=== PATIENT | male | born 1940 | race Caucasian/White ===

== ENCOUNTER 2022-01-23 08:00 | Outpatient (CLI) | payer MEDICARE ==
--- NOTE | 2022-01-23 17:01 | XRAY Report ---
PROCEDURE: Foot 3 View LT INDICATIONS: TOE DISLOCATIONS TECHNIQUE: 3 views of the foot were acquired. COMPARISON: 2 views of the left foot dated 12/13/2021 FINDINGS: Bones: No acute fracture or dislocation. A bony erosion is present at the distal first metatarsal. Ca lcaneal pitch is 17.8 degrees. Soft tissues: No tibiotalar joint effusion. Achilles tendon appears normal. IMPRESSION: 1. Bony erosion of the distal aspect of the first metatarsal. Differential considerations include sub chondral cystic change and erosive arthritis. 2. Calcaneal pitch is 17.8 degrees. Reviewed by: Elena Aguirre MD on 01/23/2022 4:59 PM PDT Approved by: Elena Aguirre MD on 01/23/2022 4:59 PM PDT Station ID: [id number]
== END 2022-01-23 23:59 | disposition home or self-care (01) ==
LOC: DI.WOS 08:00
PROVIDERS: ATTEND Orthopaedic Surgery
DX: M85.872 Other specified disorders of bone density and structure, left ankle and foot (principal)

== ENCOUNTER 2023-06-20 10:13 | Emergency (ER) | payer MEDICARE ==
[2023-06-20] MEDS ORDERED: SODIUM CHLORIDE 0.9% 1,000 ML IV STA (10:30)
--- NOTE | 2023-06-20 10:39 | ED Physician Documentation ---
History of Present Illness - Stated complaint Stated Complaint: CHILLS,GEN WEAKNESS,LETHARGIC - Chief complaint Chief Complaint: General - History obtained from History obtained from: Patient - Additonal information Additional information: 82-year-old gentleman with history of hypertension hyperlipidemia went to [facility] in [place] and he was there for 12 days. He returned a week ago. He was feeling good on return but 2 days later developed body aches, fatigue, and diarrhea. The diarrhea is getting better. He has poor appetite. He took a home COVID test and subsequently went to the walk-in clinic few days ago and had another COVID test and both were negative. He was given 3 days of Cipro which she is on almost the last day of. His is with him and has not been ill. PD PAST MEDICAL HISTORY - Past Medical History Cardiovascular: Hypertension, High cholesterol Respiratory: None Neuro: None Endocrine/Autoimmune: None GI: None : None HEENT: None Psych: None Musculoskeletal: None Derm: None - Past Surgical History Past Surgical History: Yes - Present Medications Home Medications: Ambulatory Orders Medication Instructions Recorded Confirmed Lisinopril [Zestril] 20 mg PO DAILY 06/20/23 06/20/23 Lovastatin 40 mg PO HS 06/20/23 06/20/23 hydroCHLOROthiazide [Hydrodiuril] 25 mg PO DAILY 06/20/23 06/20/23 - Allergies Allergies/Adverse Reactions: Allergies Allergy/AdvReac Type Severity Reaction Status Date / Time No Known Drug Allergies Allergy Verified 06/20/23 10:26 - Social History Does the pt smoke?: No Smoking Status: Never smoker Does the pt drink ETOH?: Yes Does the pt have substance abuse?: No PD ED PE NORMAL - Vitals Vital signs reviewed: Yes - General General: Alert and oriented X 3, No acute distress - HEENT HEENT: PERRL, EOMI, Pharynx benign - Neck Neck: Supple, no meningeal sign - Cardiac Cardiac: RRR, No murmur - Respiratory Respiratory: No respiratory distress, Clear bilaterally - Abdomen Abdomen: Normal bowel sounds, Soft, Non tender - Back Back: No CVA TTP, No spinal TTP - Derm Derm: Normal color, Warm and dry - Extremities Extremities: No edema, No calf tenderness / cord - Neuro Neuro: Alert and oriented X 3, Normal speech Eye Opening: Spontaneous Motor: Obeys Commands Verbal: Oriented GCS Score: 15 - Psych Psych: Normal mood, Normal affect Results - Vitals Vitals: Vital Signs - 24 hr 06/20/23 06/20/23 10:18 12:05 Temperature 36.0 C L Heart Rate 75 69 Respiratory 15 18 Rate Blood Pressure 114/63 116/68 O2 Saturation 99 100 Oxygen O2 Source Room air - Labs Labs: Laboratory Tests 06/20/23 06/20/23 06/20/23 10:43 10:43 11:35 WBC 4.3 L RBC 4.31 L Hgb 14.4 Hct 41.3 L MCV 95.8 H MCH 33.4 H MCHC 34.9 RDW 12.4 Plt Count 127 L MPV 10.4 Neut # (Auto) Not Reportable Lymph # (Auto) Not Reportable [place] # (Auto) Not Reportable Eos # (Auto) Not Reportable Baso # (Auto) Not Reportable Absolute Nucleated RBC Not Reportable Total Counted 100 Band Neuts % (Manual) 0 Abnorm Lymph % (Manual) 0 Metamyelocytes % 1 H Myelocytes % 1 H Nucleated RBC % Not Reportable Neutrophils # (Manual) 3.2 Lymphocytes # (Manual) 0.4 L Monocytes # (Manual) 0.3 Eosinophils # (Manual) 0.3 Basophils # (Manual) 0.0 Differential Comment MANUAL DIFFERENTIAL Platelet Estimate DECREASED (<130,000) Platelet Morphology NORMAL APPEARANCE RBC Morph Micro Appear NORMAL APPEARANCE Sodium 130 L Potassium 3.6 Chloride 96 L Carbon Dioxide 25 Anion Gap 9.0 BUN 72 H Creatinine 3.0 H Estimated GFR (MDRD) 20 L Glucose 119 H Calcium 9.2 Total Bilirubin 0.4 AST 134 H ALT 100 H Alkaline Phosphatase 114 Total Protein 7.0 Albumin 4.2 Globulin 2.8 Albumin/Globulin Ratio 1.5 Lipase 109 H Urine Color Urine Clarity Urine pH Ur Specific [place] Urine Protein Urine Glucose (UA) Urine Ketones Urine Occult Blood Urine Nitrite Urine Bilirubin Urine Urobilinogen Ur Leukocyte Esterase Urine RBC Urine WBC Ur Squamous Epith Cells Urine Bacteria Urine Casts Ur Microscopic Review Urine Culture Comments Nasal Adenovirus (PCR) NOT DETECTED Nasal B. parapertussis DNA (PCR) NOT DETECTED Nasal Coronavir 229E PCR NOT DETECTED Nasal Coronavir HKU1 PCR NOT DETECTED Nasal Coronavir NL63 PCR NOT DETECTED Nasal Coronavir OC43 PCR NOT DETECTED Nasal Enterovir/Rhinovir PCR NOT DETECTED Nasal Influenza B PCR NOT DETECTED Nasal Influenza A PCR NOT DETECTED Nasal Parainfluen 1 PCR NOT DETECTED Nasal Parainfluen 2 PCR NOT DETECTED Nasal Parainfluen 3 PCR NOT DETECTED Nasal Parainfluen 4 PCR NOT DETECTED Nasal RSV (PCR) NOT DETECTED Nasal B.pertussis DNA PCR NOT DETECTED Nasal C.pneumoniae (PCR) NOT DETECTED Isa[place] Human Metapneumo PCR NOT DETECTED Nasal M.pneumoniae (PCR) NOT DETECTED Nasal SARS-CoV-2 (PCR) NOT DETECTED 06/20/23 06/20/23 12:11 13:00 WBC RBC Hgb Hct MCV MCH MCHC RDW Plt Count MPV Neut # (Auto) Lymph # (Auto) [place] # (Auto) Eos # (Auto) Baso # (Auto) Absolute Nucleated RBC Total Counted Band Neuts % (Manual) Abnorm Lymph % (Manual) Metamyelocytes % Myelocytes % Nucleated RBC % Neutrophils # (Manual) Lymphocytes # (Manual) Monocytes # (Manual) Eosinophils # (Manual) Basophils # (Manual) Differential Comment Platelet Estimate Platelet Morphology RBC Morph Micro Appear Sodium 132 L Potassium 3.8 Chloride 100 L Carbon Dioxide 25 Anion Gap 7.0 BUN 67 H Creatinine 2.4 H Estimated GFR (MDRD) 26 L Glucose 110 H Calcium 8.5 Total Bilirubin AST ALT Alkaline Phosphatase Total Protein Albumin Globulin Albumin/Globulin Ratio Lipase Urine Color YELLOW Urine Clarity CLEAR Urine pH 5.5 Ur Specific [place] 1.015 Urine Protein 30 H Urine Glucose (UA) NEGATIVE Urine Ketones NEGATIVE Urine Occult Blood TRACE-INTA Urine Nitrite NEGATIVE Urine Bilirubin NEGATIVE Urine Urobilinogen 0.2 (NORMAL) Ur Leukocyte Esterase NEGATIVE Urine RBC None Seen Urine WBC 0-3 Ur Squamous Epith Cells FEW Squamous Urine Bacteria Rare Urine Casts 0-2 Hyaline Casts Ur Microscopic Review INDICATED Urine Culture Comments NOT INDICATED Nasal Adenovirus (PCR) Nasal B. parapertussis DNA (PCR) Nasal Coronavir 229E PCR Nasal Coronavir HKU1 PCR Nasal Coronavir NL63 PCR Nasal Coronavir OC43 PCR Nasal Enterovir/Rhinovir PCR Nasal Influenza B PCR Nasal Influenza A PCR Nasal Parainfluen 1 PCR Nasal Parainfluen 2 PCR Nasal Parainfluen 3 PCR Nasal Parainfluen 4 PCR Nasal RSV (PCR) Nasal B.pertussis DNA PCR Nasal C.pneumoniae (PCR) Isauro Human Metapneumo PCR Nasal M.pneumoniae (PCR) Nasal SARS-CoV-2 (PCR) PD Medical Decision Making - ED course ED course: 82-year-old gentleman with a diarrheal illness after returning from [place]. It is associated with aches and chills.. He has not responded to Cipro, this is more likely viral than bacteria but will check blood work and give IV fluids. His lab work here is notable for CBC showing lymphopenia and thrombocytopenia, this is most likely a viral pattern. CMP notable for significant diminution in renal function with a BUN of 72 and creatinine of 3. He also has mild transaminitis, possibly also viral in nature. Patient does state that he has a history of CKD but does not know baseline numbers. We were able to fax his doctor's office and get a prior set of labs, in September of this year he had a creatinine of 1.45, BUN of 26 correlating to a GFR 49. As such she has some acute on chronic renal failure related to prerenal azotemia from dehydration. He was administered 2 L of IV crystalloid. After 2 L of crystalloid a BMP was rechecked and all indices had improved with his BUN improving to 67 and creatinine 2.4. He remains well-appearing and nontender on abdominal examination. Discussed with him that he should drink plenty of fluids and it is okay to take Imodium at this juncture. Given close return precautions and a recommendation for repeat labs with his PCP early next week. Departure - Departure Disposition: 01 Home, Self Care Clinical Impression: SY (acute kidney injury) Diarrhea Qualifiers: Diarrhea type: presumed infectious Qualified Code(s): R19.7 - Diarrhea, unspecified Condition: Good Record reviewed to determine appropriate education?: Yes Instructions: ED Dehydration, ED Diarrhea Viral Comments: You were seen today for diarrhea, it is likely viral looking at your blood counts with mild depression of your platelet count (127) and white blood cell count (4.3). We noted you to be significantly dehydrated. As discussed you have baseline chronic kidney disease but on initial draw today your BUN was elevated at 72 and creatinine of 3 with mild low sodium at 130 and mild elevation of your liver enzymes (AST 134, ALT 100). After 2 L of IV fluids all indices had improved with a BUN of 67 now and creatinine of 2.4. Recommend you drink plenty of fluids. You can take Imodium for the diarrhea. Return if not improved in the next 2 to 3 days and follow-up with your doctor tomorrow or next week with consideration for repeat lab draw to recheck kidney and liver function I would think Saturday or Saturday. Forms: PCP List
[2023-06-20 10:53] LABS: BASOPHILS % (AUTO) 0.2 %; HCT - HEMATOCRIT 41.3 % (42.0-52.0); HGB - HEMOGLOBIN 14.4 g/dL (14.0-18.0); LYMPHOCYTES % (AUTO) 14.6 %; MEAN CORPUSCULAR HEMOGLOBIN 33.4 pg (27.0-31.0); MEAN CORPUSCULAR HGB CONC 34.9 g/dL (32.0-36.0); MEAN CORPUSCULAR VOLUME 95.8 fL (80.0-94.0); MEAN PLATELET VOLUME 10.4 fL (7.4-11.4); MONOCYTES % (AUTO) 3.1 %; NEUTROPHILS % (AUTO) 73.9 %; PLT - PLATELET COUNT 127 10^3/uL (130-450); RED BLOOD COUNT 4.31 10^6/uL (4.70-6.10); RED CELL DISTRIBUTION WIDTH 12.4 % (12.0-15.0); WHITE BLOOD COUNT 4.3 x10^3/uL (4.8-10.8)
[2023-06-20 11:04] LABS: ABNORMAL LYMPHS % (MANUAL) 0 %; BAND NEUTROPHILS % (MANUAL) 0 %
[2023-06-20 11:13] LABS: ALBUMIN 4.2 g/dL (3.2-5.5); ALBUMIN/GLOBULIN RATIO 1.5 (1.0-2.2); BILIRUBIN,TOTAL 0.4 mg/dL (0.2-1.0); CALCIUM 9.2 mg/dL (8.5-10.3); POTASSIUM 3.6 mmol/L (3.5-4.5)
[2023-06-20] MEDS ORDERED: LACTATED RINGERS 1,000 ML IV STA (11:16)
[2023-06-20 11:23] LABS: EOSINOPHILS # (MANUAL) 0.3 10^3/uL (0-0.7); LYMPHOCYTES # (MANUAL) 0.4 10^3/uL (1.5-3.5); LYMPHOCYTES % (MANUAL) 9 %; METAMYELOCYTES % (MANUAL) 1 %; MONOCYTES # (MANUAL) 0.3 10^3/uL (0.0-1.0); MYELOCYTES % (MANUAL) 1 %; NEUTROPHILS # (MANUAL) 3.2 10^3/uL (1.5-6.6)
[2023-06-20 11:25] LABS: DIFFERENTIAL COMMENT MANUAL DIFFERENTIAL; PLATELET ESTIMATE, MANUAL DECREASED (<130,000) (NORMAL); PLATELET MORPHOLOGY NORMAL APPEARANCE (NORMAL); RBC MORPHOLOGY (MULTIPLE) NORMAL APPEARANCE (NORMAL)
[2023-06-20 12:14] VITALS: O2SAT 100
[2023-06-20 12:17] LABS: BILIRUBIN,URINE NEGATIVE (NEGATIVE); CLARITY,URINE CLEAR (CLEAR); GLUCOSE, URINE (UA) NEGATIVE (NEGATIVE); KETONES,URINE (UA) NEGATIVE (NEGATIVE); LEUKOCYTE ESTERASE, URINE NEGATIVE (NEGATIVE); NITRITE,URINE NEGATIVE (NEGATIVE); OCCULT BLOOD,URINE TRACE-INTA (NEGATIVE); PH,URINE 5.5 PH (5.0-7.5); PROTEIN,URINE 30 mg/dL (NEGATIVE); UROBILINOGEN,URINE 0.2 (NORMAL) E.U./dL (NORMAL)
[2023-06-20 12:32] LABS: BACTERIA,URINE Rare /HPF (None Seen); CASTS, URINE 0-2 Hyaline Casts /LPF; RBC,URINE None Seen /HPF (0-5); SQUAMOUS EPITHELIAL CELL,UR FEW Squamous (<= Few); WBC,URINE 0-3 /HPF (0-3)
[2023-06-20 12:35] LABS: B. PARAPERTUSSIS- RESP PCR PAN NOT DETECTED; B. PERTUSSIS- RESP PCR PANEL NOT DETECTED; C. PNEUMONIAE- RESP PCR PANEL NOT DETECTED; CORONAVIRUS 229E-RESP PCR NOT DETECTED; CORONAVIRUS HKU1-RESP PCR NOT DETECTED; CORONAVIRUS NL63-RESP PCR NOT DETECTED; CORONAVIRUS OC43-RESP PCR NOT DETECTED; HUMAN METAPNEUMOVIRUS NOT DETECTED; INFLUENZA A- RESP PCR PANEL NOT DETECTED; INFLUENZA B - RESP PCR PANEL NOT DETECTED; M. PNEUMONIAE- RESP PCR PANEL NOT DETECTED; PARAINFLUENZA VIRUS 1 NOT DETECTED; PARAINFLUENZA VIRUS 2 NOT DETECTED; PARAINFLUENZA VIRUS 3 NOT DETECTED; PARAINFLUENZA VIRUS 4 NOT DETECTED; RHINOVIRUS/ENTEROVIRUS NOT DETECTED; RSV- RESP PCR PANEL NOT DETECTED; SARS-CoV-2 -RESP PCR PANEL NOT DETECTED
[2023-06-20 13:32] LABS: CALCIUM 8.5 mg/dL (8.5-10.3); CREATININE 2.4 mg/dL (0.6-1.3); POTASSIUM 3.8 mmol/L (3.5-4.5)
[2023-06-20 14:10] VITALS: BP 140/99
== END 2023-06-20 14:03 | disposition home or self-care (01) ==
LOC: ED 10:13
DX: R19.7 Diarrhea, unspecified (principal); N17.9 Acute kidney failure, unspecified; I12.9 Hypertensive chronic kidney disease with stage 1 through stage 4 chronic kidney disease, or unspecified chronic kidney disease; N18.9 Chronic kidney disease, unspecified
CPT/HCPCS: 36415; 80048; 80053; 81001; 83690; 85025; 87633; 96360; 99283; J7120; 81003; 87086